=== PATIENT | female | born 1930 | race Caucasian/White ===

== ENCOUNTER 2019-10-23 18:11 | Emergency (ER) | payer MEDICARE, OTHER ==
[2019-10-23 18:19] VITALS: BP 110/91; PULSE 91; TEMP 97.8; BMI 19.8
--- NOTE | 2019-10-23 18:23 | PDOC ---
Rapid Medical Evaluation Chief Complaint: Injury Time Seen by Provider: 10/23/19 18:16 Medical Evaluation: Allergies Allergy/AdvReac Type Severity Reaction Status Date / Time codeine [Codeine] Allergy Verified 10/23/19 18:14 erythromycin base Allergy Verified 10/23/19 18:14 [Erythromycin Base] Penicillins Allergy Verified 10/23/19 18:14 10/23/19 18:18 I have performed a brief in-person evaluation of this patient. The patient presents with a chief complaint of: lac to left knee, abrasion to b/l elbows and right little finger s/p trip and fall on outstretched and. pt was walking with her cane and missed a step and fell on the hallway on a carpet. Denies hitting head or LOC. pt on eliquis. Pertinent physical exam findings: abrasions to b/l elbows. superficial lac to left knee with pressure dressing on it. I have ordered the following: nothing The patient will proceed to the ED for further evaluation. Discharge Disposition - Diagnosis Multiple abrasions Fall Qualifiers: Encounter type: initial encounter Qualified Code(s): W19.XXXA - Unspecified fall, initial encounter - Discharge Dispostion Condition at time of disposition: Stable - Referrals - Patient Instructions - Post Discharge Activity
[2019-10-23] MEDS ORDERED: BACITRACIN 0.9 GM PACKET TP ONE (18:45)
[2019-10-23] MEDS ORDERED: DIPHTH,PERTUSS(ACELL),TET 0.5 ML DISP.SYRIN IM ONE ×2 (18:45→19:14)
--- NOTE | 2019-10-23 18:48 | PDOC ---
History of Present Illness - General Chief Complaint: Injury Stated Complaint: FALL/INJURIES/BILATERAL/ARM/L/LEG Time Seen by Provider: 10/23/19 18:16 History Source: Patient Exam Limitations: No Limitations - History of Present Illness Initial Comments: 10/23/19 18:46 HISTORY OF PRESENT ILLNESS: 89-year-old woman past medical history of DVT on Eliquis, osteoporosis, left total hip replacement 2019, hyperlipidemia presents emergency department for evaluation of multiple abrasions status post trip and fall. Patient reports she was walking in her hallway when she tripped over her cane falling onto her left knee and then onto bilateral forearms. She denies any head trauma. She reports she landed in an awkward position and was having a difficult time standing up and waited approximately 10 minutes before she was assisted off the floor. Patient has full recollection of events and has been ambulatory since the fall happened. No recent travel or sick contacts. PAST MEDICAL HISTORY: See HPI SURGICAL HISTORY: See HPI ALLERGIES: Codeine, erythromycin, penicillins REVIEW OF SYSTEMS General/Constitutional: Denies fever or chills. Denies weakness, weight change. HEENT: Denies change in vision. Denies ear pain or discharge. Denies sore throat. Cardiovascular: Denies chest pain or shortness of breath. Respiratory: Denies cough, wheezing, or hemoptysis. Gastrointestinal: Denies nausea, vomiting, diarrhea or constipation. Denies rectal bleeding. Genitourinary: Denies dysuria, frequency, or change in urination. Musculoskeletal: See HPI Skin and breasts: See HPI Neurologic: Denies headache, vertigo, loss of consciousness, or loss of sensation. Psychiatric: Denies depression or anxiety. Endocrine: Denies increased thirst. Denies abnormal weight change. Hematologic/Lymphatic: Denies anemia, easy bleeding, or history of blood clots. Allergic/Immunologic: Denies hives or skin allergy. Denies latex allergy. PHYSICAL EXAM General Appearance: Well-appearing, appropriately dressed. No apparent distress, no intoxication. HEENT: EOMI, PERRLA, normal ENT inspection, normal voice, TMs normal, pharynx normal. No conjunctival pallor. No photophobia, scleral icterus. Vascular Pulses: Dorsalis-Pedis (R): 2+, Dorsalis-Pedis (L): 2+ Gastrointestinal/Abdominal: Normal bowel sounds. Abdomen soft, non-distended. No tenderness or rebound tenderness. No organomegaly, pulsatile mass, guarding, hernia, hepatomegaly, splenomegaly. Lymphatic: No adenopathy, tenderness. Musculoskeletal/Extremities: Normal inspection. FROM of all extremities, normal capillary refill. Pelvis Stable. No CVA tenderness. Tender to palpation over the left mid thigh. Integumentary: Audible abrasions present to bilateral elbows and forearms bilaterally. Skin tear noted to the left anterior knee inferior to the patella. Neurologic: multiple drum sander helper II-XII intact. Fully oriented, alert. Appropriate mood/affect. Motor strength 5/5. No appreciable EOM palsy, facial droop or sensory deficit. Past History - Medical History Allergies/Adverse Reactions: Allergies Allergy/AdvReac Type Severity Reaction Status Date / Time codeine [Codeine] Allergy Verified 10/23/19 18:14 erythromycin base Allergy Verified 10/23/19 18:14 [Erythromycin Base] Penicillins Allergy Verified 10/23/19 18:14 Home Medications: Ambulatory Orders Aspirin Coated [Ecotrin] 162 mg PO DAILY 01/11/12 Chondroitin Sulfate A [Chondroitin Sulfate] 250 mg PO BID 01/11/12 Levothyroxine [Synthroid] 100 mcg PO DAILY 01/11/12 Metoprolol Tartrate [Lopressor] 50 mg PO DAILY 01/11/12 Psyllium Husk/Aspartame [Metamucil [facility] Powder] 425 gm PO BID 01/11/12 Simvastatin [Zocor] 20 mg PO HS 01/11/12 Vitamin E 400 unit PO DAILY 01/11/12 Anemia: No Asthma: No Cancer: No Cardiac Disorders: No CVA: No COPD: No CHF: No Dementia: No Diabetes: No GI Disorders: Yes (CONSTIPATION,COLON POLYPS) Disorders: No HTN: Yes Hypercholesterolemia: Yes Liver Disease: No Seizures: No Thyroid Disease: No - Surgical History Abdominal Surgery: No Appendectomy: Yes Cardiac Surgery: No Cholecystectomy: Yes Lung Surgery: No Neurologic Surgery: No Orthopedic Surgery: No - Psycho-Social/Smoking History Smoking History: Never smoked Have you smoked in the past 12 months: No - Substance Abuse Hx (Audit-C & DAST Scrn) How often the patient has a drink containing alcohol: Never Score: In Men: 4 or > Positive; In Women: 3 or > Positive: 0 Screen Result (Pos requires Nsg. Audit-10AR): Negative In the last yr the pt used illegal drug/Rx for NonMed reason: No Score: Yes response is considered Positive: 0 Screen Result (Positive result requires Nsg. DAST-10): Negative *Physical Exam - Vital Signs Last Vital Signs Temp Pulse Resp BP Pulse Ox 97.8 F 91 H 17 110/91 99 10/23/19 18:15 10/23/19 18:15 10/23/19 18:15 10/23/19 18:15 10/23/19 18:15 ED Treatment Course - RADIOLOGY Radiology Studies Ordered: Category Date Time Status FEMUR-LEFT [RAD] Stat Radiology 10/23/19 18:45 Ordered Medical Decision Making - Medical Decision Making 10/23/19 18:48 A/P: 89-year-old woman with multiple skin tears and abrasions status post trip and fall As patient is tender to palpation over the left femur we will get an x-ray to rule out fracture given patient's age and recent left hip surgery Bacitracin to wounds Boostrix Reassess 10/23/19 21:17 CT scan is read by Dr. Zavala: Moderate atrophy and periventricular chronic microvascular ischemic changes without gross CT evidence of acute intracranial pathology. No mass lesion, gross acute infarct or intracranial hemorrhage are identified. There is no shift of the midline structures. X-ray of the left femur is read by Dr. Zavala: No gross fracture or dislocation are identified. I discussed the physical exam findings, ancillary test results and final diagnoses with the patient. I answered all of the patient's questions. The patient was satisfied with the care received and felt comfortable with the discharge plan and treatment plan. The patient will call their primary care physician within 24 hours to arrange follow-up and will return to the Emergency Department with any new, persistent or worsening symptoms. Portions of this note have been documented using voice recognition software. As a result, errors may occur in the nursing home director process. Effort has been made to correct all grammatical and nursing home director error, but some may have been missed which may produce sporadic inaccurate nursing home director or nonsensical phrases. Discharge - Discharge Information Problems reviewed: Yes Clinical Impression/Diagnosis: Multiple abrasions Fall Qualifiers: Encounter type: initial encounter Qualified Code(s): W19.XXXA - Unspecified fall, initial encounter Condition: Fair Disposition: HOME - Admission No - Follow up/Referral Referrals: Charli Montoya [Primary Care Provider] - - Patient Discharge Instructions Patient Printed Discharge Instructions: How to Prevent Falls Additional Instructions: Be careful when walking. Wash your wounds with soap and water twice a day and make sure the wounds are thoroughly dry. Apply antibiotic ointment to open wounds twice a day after washing for the next 3 days. Your emergency department visit is incomplete until you follow-up with your primary doctor. Return to the emergency department for any new or worsening symptoms. Thank you very much for choosing us to provide your emergent healthcare needs. - Post Discharge Activity
[2019-10-23] MEDS ORDERED: BACITRACIN 0.9 GM PACKET ONE (19:14)
--- NOTE | 2019-10-23 20:01 | PDOC ---
*Physical Exam - Vital Signs Last Vital Signs Temp Pulse Resp BP Pulse Ox 97.8 F 91 H 17 110/91 99 10/23/19 18:15 10/23/19 18:15 10/23/19 18:15 10/23/19 18:15 10/23/19 18:15 ED Treatment Course - Medications Given in the ED: ED Medications Discontinued Medications Generic Name Dose Route Start Last Admin Trade Name Freq PRN Reason Stop Dose Admin Bacitracin 0.9 gm 10/23/19 18:45 10/23/19 19:30 Bacitracin - TP 10/23/19 18:46 0.9 gm ONCE ONE Administration Diphtheria/Tetanus/Acell Pertussis 0.5 ml 10/23/19 18:45 10/23/19 19:30 Boostrix - IM 10/23/19 18:46 0.5 ml .ONCE ONE Administration Medical Decision Making - Medical Decision Making 10/23/19 20:00 Patient seen by the advanced practice provider under my supervision. Ancillary testing reviewed as necessary. I agree with plan as outlined by the advanced practice provider. Discharge - Discharge Information Problems reviewed: Yes Clinical Impression/Diagnosis: Multiple abrasions Fall Qualifiers: Encounter type: initial encounter Qualified Code(s): W19.XXXA - Unspecified fall, initial encounter Condition: Fair Disposition: HOME - Follow up/Referral Referrals: Charli Montoya [Primary Care Provider] - - Patient Discharge Instructions Patient Printed Discharge Instructions: How to Prevent Falls Additional Instructions: Be careful when walking. Wash your wounds with soap and water twice a day and make sure the wounds are thoroughly dry. Apply antibiotic ointment to open wounds twice a day after washing for the next 3 days. Your emergency department visit is incomplete until you follow-up with your primary doctor. Return to the emergency department for any new or worsening symptoms. Thank you very much for choosing us to provide your emergent healthcare needs. - Post Discharge Activity
== END 2019-10-23 21:33 | disposition home or self-care (01) ==
LOC: JER 18:11
PROC: 3E0234Z Introduction of Serum, Toxoid and Vaccine into Muscle, Percutaneous Approach (ICD-10-PCS; principal; 2019-10-23)
DX: S50.311A Abrasion of right elbow, initial encounter (principal); S50.312A Abrasion of left elbow, initial encounter; S81.012A Laceration without foreign body, left knee, initial encounter
CPT/HCPCS: 70450-TC; 73552-TC-LT-FY; 90715; 99284-25